=== PATIENT | female | born 1985 | race American Indian/Alaskan Native ===

== ENCOUNTER 2016-05-25 17:14 | Emergency (ER) | payer SELFPAY ==
[2016-05-25 18:30] LABS: Anion Gap 20 mmol/L; BUN/Creatinine Ratio 14.28; Blood Urea Nitrogen 10 mg/dL (7-17); Calcium 9.5 mg/dL (8.4-10.2); Carbon Dioxide 24 mmol/L (22-30); Chloride 98.2 mmol/L (98-107); Glucose 94 mg/dL (65-100); Potassium 3.9 mmol/L (3.6-5.0); Sodium 138 mmol/L (137-145)
[2016-05-25 19:00] LABS: Basophils % (Auto) 0.6 % (0.0-1.8); Eosinophils % (Auto) 1.4 % (0.0-4.3); Hematocrit 39.6 % (30.3-42.9); Hemoglobin 13.3 gm/dl (10.1-14.3); Mean Corpuscular HGB Conc 34 % (30-34); Mean Corpuscular Hemoglobin 31 pg (28-32); Mean Corpuscular Volume 92 fl (79-97); Platelet Count 332 K/mm3 (140-440); Red Blood Count 4.32 M/mm3 (3.65-5.03); Red Cell Distribution Width 13.2 % (13.2-15.2); White Blood Count 9.8 K/mm3 (4.5-11.0)
[2016-05-25 19:21] LABS: Bacteria,Urine 1+ /HPF (Negative); Bilirubin,Urine NEG (Negative); Blood,Urine NEG (Negative); Ketones,Urine 20 mg/dL (Negative); Leukocyte Esterase,Urine TR (Negative); Mucus,Urine 3+ /HPF; Nitrite,Urine NEG (Negative); Urobilinogen,Urine < 2.0 mg/dL (<2.0)
[2016-05-25] MEDS ORDERED: NACL 0.9% 1000 ML 1,000 ML IV ONE (23:18)
--- NOTE | 2016-05-25 23:51 | Emergency Department Report ---
HPI - General Chief Complaint: Nausea/Vomiting/Diarrhea Time Seen by Provider: 05/25/16 23:11 - HPI HPI: This is a 31-year-old [place] female presents to the emergency department with a complaint of generalized body aches, nausea, vomiting, all while . Patient says that she had a positive home test but has not yet seen her [facility]. She says she is unable to keep down any fluids or solids. She arrives with a note asking for Zofran and diclegis. He has a history of hypertension. No recent travel or sick contacts at home. She is not taken anything for symptoms prior to presentation. Patient is unsure of her last menstrual cycle. ED Past Medical Hx - Past Medical History Hx Hypertension: Yes - Surgical History Additional Surgical History: X 2 - Social History Smoking Status: Never Smoker Substance Use Type: None - Medications Home Medications: Home Medications Medication Instructions Recorded Confirmed Last Taken Type Azithromycin [Zithromax Z-SUMEET] 250 mg PO DAILY #6 tab 04/06/13 Unknown Rx Doxylamine/Pyridoxine HCl 1 each PO Q8H PRN #20 tablet. 05/26/16 Unknown Rx [Diclegis Dr 10-10 mg Tablet] Ondansetron [Zofran Odt] 4 mg PO Q8HR PRN #10 tab.rapdis 05/26/16 Unknown Rx ED Review of Systems ROS: Stated complaint: CHEST PAIN/VOMITING Other details as noted in HPI Comment: All other systems reviewed and negative Constitutional: denies: chills, fever Eyes: denies: eye pain, eye discharge, vision change ENT: denies: ear pain, throat pain Respiratory: denies: cough, shortness of breath, wheezing Cardiovascular: chest pain. denies: palpitations Gastrointestinal: abdominal pain, nausea, vomiting Genitourinary: denies: urgency, dysuria, discharge Musculoskeletal: myalgia. denies: joint swelling, arthralgia Skin: denies: rash, lesions Neurological: denies: headache, weakness, paresthesias Physical Exam - Physical Exam Vital Signs: Vital Signs 05/25/16 17:40 Temperature 98.2 F Pulse Rate 80 Respiratory 15 Rate Blood Pressure 148/103 O2 Sat by Pulse 98 Oximetry Physical Exam: GENERAL: The patient is well-developed well-nourished. HEENT: Normocephalic. Atraumatic. Extraocular motions are intact. Patient has moist mucous membranes. Pupils equal reactive to light bilaterally. NECK: Supple. Trachea is midline. CHEST/LUNGS: Clear to auscultation. There is no respiratory distress noted. HEART/CARDIOVASCULAR: Regular. There is no tachycardia. There is no gallop rub or murmur. ABDOMEN: Abdomen is soft. Mild generalized tenderness palpation of the abdomen. No guarding. Tenderness. Patient has normal bowel sounds. There is no abdominal distention. SKIN: There is no rash. Warm and dry. NEURO: The patient is awake, alert, and oriented. The patient is cooperative. The patient has no focal neurologic deficits. The patient has normal speech. MUSCULOSKELETAL: There is no tenderness or deformity. There is no limitation range of motion. There is no evidence of acute injury. ED Course Vital Signs 05/25/16 17:40 Temperature 98.2 F Pulse Rate 80 Respiratory 15 Rate Blood Pressure 148/103 O2 Sat by Pulse 98 Oximetry ED Medical Decision Making - Lab Data Result diagrams: 05/25/16 17:58 05/25/16 17:58 - EKG Data -: EKG Interpreted by Or EKG shows normal: sinus rhythm, axis, intervals, QRS complexes, ST-T waves Rate: normal - EKG Data When compared to previous EKG there are: previous EKG unavailable Interpretation: normal EKG - Radiology Data Radiology results: report reviewed Transvaginal/ ultrasound shows a live intrauterine about 5 weeks and 6 days - Medical Decision Making 31-year-old female presents emergency Department with complaint of nausea, vomiting and some abdominal discomfort while . Patient's labs are mostly unremarkable. Transvaginal/ ultrasound shows a live and uterine at about 6 weeks. Patient was given some Zofran, IV fluid resuscitation and upon reevaluation she is doing better. She was able to keep down some crackers and juice without any further nausea or vomiting. Patient already has an appointment with [facility]. She was given some Zofran and diclegis for home. She will return to the ER with any worsening of her symptoms or any acute distress. - Differential Diagnosis , spontaneous miscarriage, fibroids, UTI, food poisoning Critical Care Time: No Critical care attestation.: If time is entered above; I have spent that time in minutes in the direct care of this critically ill patient, excluding procedure time. ED Disposition Clinical Impression: Hyperemesis arising during , Body aches Qualifiers: Weeks of gestation: less than 8 weeks Qualified Code(s): Z3A.01 - Less than 8 weeks gestation of Disposition: DISCHARGED TO HOME OR SELFCARE Is pt being admited?: No Condition: Stable Instructions: (ED), Hyperemesis Gravidarum (ED) Additional Instructions: Please follow-up with [facility] in the next few days. Return to the emergency department with any worsening of your symptoms or any acute distress. Prescriptions: Doxylamine/Pyridoxine HCl [Briana Berrios 10-10 mg Tablet] 1 each PO Q8H PRN #20 tablet.dr PRN Reason: Nausea Ondansetron [Zofran Odt] 4 mg PO Q8HR PRN #10 tab.rapdis PRN Reason: Nausea Referrals: PRIMARY CARE, [Primary Care Provider] - 3-5 Days [facility] [place] [facility] [Provider Group] - 3-5 Days Time of Disposition: 03:20
[2016-05-26] MEDS ORDERED: ZOFRAN ONE (01:00)
--- NOTE | 2016-05-26 01:01 | Ultrasound Report ---
FINAL REPORT EXAM: US OB TRANSVAGINAL HISTORY: Abd pain, preg COMPARISON: None available. TECHNIQUE: Several real-time grayscale and color Doppler images were obtained. Transabdominal and transvaginal exam. FINDINGS: The uterus measures 9.2 x 4.7 x 5.1 centimeters. Single live IUP. Estimated gestational age 5 weeks 6 days. Estimated delivery date January 20, 2017. heart rate 101 beats per minute. Trace fluid in the pelvis. The cervix is closed. Ovaries are not visualized. No adnexal masses are demonstrated. IMPRESSION: Single live IUP. Estimated gestational age 5 weeks 6 days. Estimated delivery date January 20, 2017. No gross abnormality.
--- NOTE | 2016-05-26 01:01 | Ultrasound Report ---
FINAL REPORT EXAM: US OB \T\lt; = 14 WEEKS FETUS HISTORY: Abd pain, preg COMPARISON: None available. TECHNIQUE: Several real-time grayscale and color Doppler images were obtained. Transabdominal and transvaginal exam. FINDINGS: The uterus measures 9.2 x 4.7 x 5.1 centimeters. Single live IUP. Estimated gestational age 5 weeks 6 days. Estimated delivery date January 20, 2017. heart rate 101 beats per minute. Trace fluid in the pelvis. The cervix is closed. Ovaries are not visualized. No adnexal masses are demonstrated. IMPRESSION: Single live IUP. Estimated gestational age 5 weeks 6 days. Estimated delivery date January 20, 2017. No gross abnormality.
[2016-05-26] MEDS ORDERED: ZOFRAN IV ONE (01:06)
[2016-05-26 02:42] VITALS: BP 138/93
== END 2016-05-26 03:41 | disposition home or self-care (01) ==
LOC: ED 17:14
DX: O21.1 Hyperemesis gravidarum with metabolic disturbance (principal); O26.891 Other specified pregnancy related conditions, first trimester; M79.1 Myalgia; O16.1 Unspecified maternal hypertension, first trimester; Z3A.01 Less than 8 weeks gestation of pregnancy
CPT/HCPCS: 36415; 76801; 76817; 80048; 81001; 82550; 84703; 85025; 93005; 93010; 96361; 96374; 99284; J2405; J7030; 82962

== ENCOUNTER 2019-11-25 16:51 | Emergency (ER) | payer MEDICAID ==
[2019-11-25 21:12] LABS: Basophils # (Auto) 0.1 K/mm3 (0.0-0.1); Basophils % (Auto) 0.7 % (0.0-1.8); Eosinophils # (Auto) 0.1 K/mm3 (0.0-0.4); Eosinophils % (Auto) 1.2 % (0.0-4.3); Hematocrit 35.6 % (30.3-42.9); Hemoglobin 12.2 gm/dl (10.1-14.3); Lymphocytes # (Auto) 2.8 K/mm3 (1.2-5.4); Lymphocytes % (Auto) 34.2 % (13.4-35.0); Mean Corpuscular HGB Conc 34 % (30-34); Mean Corpuscular Volume 91 fl (79-97); Monocytes # (Auto) 0.5 K/mm3 (0.0-0.8); Monocytes % (Auto) 5.6 % (0.0-7.3); Platelet Count 360 K/mm3 (140-440); Red Blood Count 3.92 M/mm3 (3.65-5.03); Red Cell Distribution Width 13.8 % (13.2-15.2)
--- NOTE | 2019-11-25 21:13 | Emergency Department Report ---
ED Chest Pain HPI - General Chief Complaint: Chest Pain Stated Complaint: CHEST AND LEG PAIN Time Seen by Provider: 11/25/19 20:19 Source: patient Mode of arrival: Ambulatory Limitations: No Limitations - History of Present Illness Initial Comments: This is a 34-year-old female who presents to the emergency department from home with complaint of some nonradiating left-sided chest pain that started yesterday. She still has some discomfort but it is improved from its onset. She also complains of some right calf pain but denies any lower extremity sw elling. She also denies any shortness of breath, orthopnea, fever, nausea, vomiting or diaphoresis. Patient follows with a cardiology service through [facility] and says that she was recently diagnosed with heart failure. She also has a history of hypertension. She is on carvedilol, amlodipine and a baby aspirin. No recent travel or sick contacts at home. She has not taken anything for symptoms prior to presentation today. - Related Data Previous Rx's Medication Instructions Recorded Last Taken Type Azithromycin [Zithromax Z-SUMEET] 250 mg PO DAILY #6 tab 04/06/13 Unknown Rx Doxylamine Succinate/Vit B6 1 each PO Q8H PRN #20 tablet. 05/26/16 Unknown Rx [Briana Berrios 10-10 mg Tablet] Ondansetron [Zofran Odt] 4 mg PO Q8HR PRN #10 tab.phillip 05/26/16 Unknown Rx Allergies Allergy/AdvReac Type Severity Reaction Status Date / Time No Known Allergies Allergy Verified 05/25/16 17:39 Heart Score - HEART Score History: Slightly suspicious EKG: Normal Age: < 45 Risk factors: 1-2 risk factors Troponin: < normal limit HEART Score: 1 - Critical Actions Critical Actions: 0-3 pts:0.9-1.7%risk of adverse cardiac event.Candidate for discharge ED Review of Systems ROS: Stated complaint: CHEST AND LEG PAIN Other details as noted in HPI Comment: All other systems reviewed and negative Constitutional: denies: chills, fever Eyes: denies: eye pain, vision change ENT: denies: ear pain, throat pain Respiratory: denies: cough, orthopnea, shortness of breath Cardiovascular: chest pain. denies: palpitations, edema Gastrointestinal: denies: abdominal pain, vomiting Genitourinary: denies: dysuria, discharge Musculoskeletal: myalgia. denies: joint swelling Skin: denies: rash, lesions Neurological: denies: headache, weakness ED Past Medical Hx - Past Medical History Previous Medical History?: Yes Hx Hypertension: Yes Hx Congestive Heart Failure: Yes - Surgical History Past Surgical History?: Yes Additional Surgical History: X 2 - Social History Smoking Status: Never Smoker Substance Use Type: None - Medications Home Medications: Home Medications Medication Instructions Recorded Confirmed Last Taken Type Azithromycin [Zithromax Z-SUMEET] 250 mg PO DAILY #6 tab 04/06/13 Unknown Rx Doxylamine Succinate/Vit B6 1 each PO Q8H PRN #20 tablet. 05/26/16 Unknown Rx [Diclegis Dr 10-10 mg Tablet] Ondansetron [Zofran Odt] 4 mg PO Q8HR PRN #10 tab.phillip 05/26/16 Unknown Rx ED Physical Exam - General Limitations: No Limitations - Other Other exam information: GENERAL: The patient is well-developed well-nourished. HENT: Normocephalic. Atraumatic. Patient has moist mucous membranes. EYES: Extraocular motions are intact. NECK: Supple. Trachea is midline. CHEST/LUNGS: Clear to auscultation. There is no respiratory distress noted. HEART/CARDIOVASCULAR: Regular. There is no tachycardia. There is no murmur. ABDOMEN: Abdomen is soft, nontender. Patient has normal bowel sounds. SKIN: Skin is warm and dry. NEURO: The patient is awake, alert, and oriented. The patient is cooperative. Normal speech. MUSCULOSKELETAL: There is no tenderness or deformity. There is no evidence of acute injury. ED Course Vital Signs 11/25/19 11/25/19 11/25/19 17:06 20:35 21:00 Temperature 98.1 F 98.8 F Pulse Rate 105 H 93 H 76 Respiratory 20 18 16 Rate Blood Pressure 148/101 153/91 Blood Pressure 180/110 [Right] O2 Sat by Pulse 97 98 100 Oximetry 11/25/19 11/25/19 11/25/19 21:31 22:00 22:31 Temperature Pulse Rate 77 82 82 Respiratory 18 16 22 Rate Blood Pressure 148/101 151/94 151/94 Blood Pressure [Right] O2 Sat by Pulse 100 98 98 Oximetry 11/25/19 23:01 Temperature Pulse Rate Respiratory Rate Blood Pressure 150/83 Blood Pressure [Right] O2 Sat by Pulse 100 Oximetry ERNST score - Ernst Score Age > 65: (0) No Aspirin use within the Past 7 Days: (0) No 3 or more CAD Risk Factors: (0) No 2 or more Angina events in past 24 hrs: (1) Yes Known CAD with more than 50% Stenosis: (0) No Elevated Cardiac Markers: (0) No ST Deviation Greater than 0.5mm: (0) No ERNST Score: 1 ED Medical Decision Making - Lab Data Result diagrams: 11/25/19 20:55 11/25/19 20:55 - EKG Data -: EKG Interpreted by Me EKG shows normal: sinus rhythm, axis, intervals, QRS complexes, ST-T waves Rate: normal - EKG Data When compared to previous EKG there are: previous EKG unavailable Interpretation: normal EKG - Radiology Data Radiology results: report reviewed, image reviewed interpreted by me: Chest x-ray does not show any acute process. There are no pleural effusions, obvious pneumonia and there is no pneumothorax. No significant cardiomegaly. CTA CHEST WITH IV CONTRAST INDICATION: Chest pain TECHNIQUE: Axial CT images were obtained through the chest after injection of IV contrast. Coronal oblique 2-D reconstruction images were produced. 3 plane MIP reconstruction images were produced at an independent workstation. All CTs at this facility utilize dose reduction techniques including automated exposure control, iterative reconstruction and weight based dosing when appropriate to reduce patient radiation dose to as low as reasonable achievable. COMPARISON: Chest radiograph, 11/25/2019 FINDINGS: No filling defects are visualized within the central or segmental pulmonary arteries to suggest pulmonary embolism. The heart is normal in size. The thoracic aorta appears normal in course and caliber. Evaluation of the lung parenchyma demonstrates no evidence of focal airspace disease or pleural effusion. Limited imaging of the upper abdomen demonstrates no evidence of acute abnormality.. Bones and soft tissues: Evaluation of bony structures d emonstrates no evidence of acute bony abnormality. Evaluation of soft tissue structures demonstrates no evidence of acute soft tissue abnormality. IMPRESSION: 1. No evidence of pulmonary embolism or acute parenchymal process. - Medical Decision Making This patient presents to the emergency department with complaint of some left- sided chest pain. EKG is normal without any ST elevation [place] or dysrhythmia. Chest x-ray does not show any pneumonia, pleural effusions, pneumothorax, or any acute process. Patient's labs have been mostly unremarkable including CBC, metabolic panel and negative troponins x2. However the patient did have a slightly elevated and equivocal d-dimer level of about 260. Therefore the patient had a CT angiography study of the chest that resulted as negative for any pulmonary embolism or any other acute abnormalities or process. The patient was given a dose of Tylenol for her discomfort with some improvement. Her vital signs have been reassuring throughout her ED course including being afebrile. She has a low heart and ERNST score. She has good outpatient follow- up with both primary care and cardiology. She will return to the ER with any worsening of her symptoms or with any acute distress. Critical Care Time: No Critical care attestation.: If time is entered above; I have spent that time in minutes in the direct care of this critically ill patient, excluding procedure time. ED Disposition Clinical Impression: Chest pain Qualifiers: Chest pain type: unspecified Qualified Code(s): R07.9 - Chest pain, unspecified Hypertension Qualifiers: Hypertension type: essential hypertension Qualified Code(s): I10 - Essential (primary) hypertension Disposition: DC- TO HOME OR SELFCARE Is pt being admited?: No Condition: Stable Instructions: Chest Pain (ED), Hypertension (ED) Additional Instructions: Please follow-up with your primary care physician and commercial property administrator in the next few days. Return to the emergency department with any worsening of your symptoms or with any acute distress. Referrals: PRIMARY MD [facility] [Primary Care Provider] - 2-3 Days [facility] [Other] - 2-3 Days Time of Disposition: 00:32
[2019-11-25 21:24] LABS: INR 0.94 (0.87-1.13)
[2019-11-25] MEDS ORDERED: ACETAMINOPHEN 325 MG TAB PO ONE (21:32)
[2019-11-25 21:36] LABS: Alanine Aminotransferase 26 units/L (7-56); Albumin 4.2 g/dL (3.9-5); Blood Urea Nitrogen 8 mg/dL (7-17); Calcium 9.7 mg/dL (8.4-10.2); Hemolysis Index 1
[2019-11-25 21:38] LABS: BUN/Creatinine Ratio 11
[2019-11-25] MEDS ORDERED: POTASSIUM CHLORIDE ER 20 MEQ TAB PO ONE (21:53)
--- NOTE | 2019-11-25 21:53 | XRay Report ---
XR chest 1V ap INDICATION / CLINICAL INFORMATION: cp, sob. COMPARISON: None available. FINDINGS: SUPPORT DEVICES: None. HEART / MEDIASTINUM: No significant abnormality. LUNGS / PLEURA: Lungs are clear. Costophrenic sulci are sharp. No pneumothorax. ADDITIONAL FINDINGS: No significant additional findings. IMPRESSION: 1. No acute findings. Signer Name: Vladimir De Paz MD Signed: 11/25/2019 9:48 PM Workstation Name: [id number]
--- NOTE | 2019-11-26 00:23 | Cat Scan Report ---
CTA CHEST WITH IV CONTRAST INDICATION: Chest pain TECHNIQUE: Axial CT images were obtained through the chest after injection of IV contrast. Coronal oblique 2-D reconstruction images were produced. 3 plane MIP reconstruction images were produced at an [employer] workstation. All CTs at this facility utilize dose reduction techniques including automated expos ure control, iterative reconstruction and weight based dosing when appropriate to reduce patient radi ation dose to as low as reasonable achievable. COMPARISON: Chest radiograph, 11/25/2019 FINDINGS: No filling defects are visualized within the central or segmental pulmonary arteries to suggest pulmo nary embolism. The heart is normal in size. The thoracic aorta appears normal in course and caliber. Evaluation of the lung parenchyma demonstrates no evidence of focal airspace disease or pleural effus ion. Limited imaging of the upper abdomen demonstrates no evidence of acute abnormality.. Bones and soft tissues: Evaluation of bony structures demonstrates no evidence of acute bony abnormal ity. Evaluation of soft tissue structures demonstrates no evidence of acute soft tissue abnormality. IMPRESSION: 1. No evidence of pulmonary embolism or acute parenchymal process. Signer Name: Taylor Gonzalez MD Signed: 11/26/2019 12:19 AM Workstation Name: [id number]
[2019-11-26 07:14] VITALS: BP 127/78
== END 2019-11-26 00:40 | disposition home or self-care (01) ==
LOC: ED 16:51
DX: R07.89 Other chest pain (principal); M79.604 Pain in right leg; I11.0 Hypertensive heart disease with heart failure; I50.9 Heart failure, unspecified; Z98.890 Other specified postprocedural states
CPT/HCPCS: 36415; 71045; 71275; 80053; 83880; 84484; 84703; 85025; 85379; 85610; 93005; 99285; Q9967

== ENCOUNTER 2020-02-23 09:13 | Emergency (ER) | payer MEDICAID ==
--- NOTE | 2020-02-23 09:58 | XRay Report ---
CHEST 2 VIEWS INDICATION / CLINICAL INFORMATION: Chest Pain. COMPARISON: 11/25/2019 FINDINGS: SUPPORT DEVICES: None. HEART / MEDIASTINUM: No significant abnormality. LUNGS / PLEURA: No significant pulmonary or pleural abnormality. No pneumothorax. ADDITIONAL FINDINGS: No significant additional findings. IMPRESSION: 1. No acute findings. Signer Name: Osorio Carranza MD Signed: 02/23/2020 9:54 AM Workstation Name: [id number]
[2020-02-23 10:34] LABS: Basophils # (Auto) 0.1 K/mm3 (0.0-0.1); Eosinophils # (Auto) 0.1 K/mm3 (0.0-0.4); Eosinophils % (Auto) 1.5 % (0.0-4.3); Hemoglobin 11.7 gm/dl (10.1-14.3); Lymphocytes # (Auto) 1.5 K/mm3 (1.2-5.4); Lymphocytes % (Auto) 21.4 % (13.4-35.0); Mean Corpuscular HGB Conc 33 % (30-34); Mean Corpuscular Volume 93 fl (79-97); Monocytes # (Auto) 0.5 K/mm3 (0.0-0.8); Monocytes % (Auto) 7.8 % (0.0-7.3); Platelet Count 301 K/mm3 (140-440); Red Blood Count 3.77 M/mm3 (3.65-5.03); Red Cell Distribution Width 13.9 % (13.2-15.2)
[2020-02-23 10:44] LABS: Alanine Aminotransferase 18 units/L (7-56); Albumin 3.7 g/dL (3.9-5); Blood Urea Nitrogen 7 mg/dL (7-17); Hemolysis Index 7
[2020-02-23 10:46] LABS: BUN/Creatinine Ratio 12
[2020-02-23] MEDS ORDERED: POTASSIUM CHLORIDE ER 20 MEQ TAB PO ONE (10:55)
--- NOTE | 2020-02-23 11:42 | Emergency Department Report ---
ED Chest Pain HPI - General Chief Complaint: Pain General Stated Complaint: CHEST/ARM/LEG/WRIST PAIN Time Seen by Provider: 02/23/20 10:02 Source: patient Mode of arrival: Ambulatory Limitations: No Limitations - History of Present Illness Initial Comments: 34-year-old -[place] female patient presents with complaints of muscle cramps and spasms bilaterally to her legs arms and chest wall muscles x4 weeks. Patient states her symptoms began after she began taking antibiotics and omeprazole for H. pylori. She denies any leg pain/swelling, shortness of breath, chest pain, recent long travel/surgeries, cough, hemoptysis, history of DVT/PE/cancer, or hormone use. She also denies any nausea/vomiting/diarrhea. Patient has history of CHF and hypertension - Related Data Previous Rx's Medication Instructions Recorded Last Taken Type Azithromycin [Zithromax Z-SUMEET] 250 mg PO DAILY #6 tab 04/06/13 Unknown Rx Doxylamine Succinate/Vit B6 1 each PO Q8H PRN #20 tablet. 05/26/16 Unknown Rx [Briana Berrios 10-10 mg Tablet] Ondansetron [Zofran Odt] 4 mg PO Q8HR PRN #10 tab.phillip 05/26/16 Unknown Rx methOCARBAMOL [Robaxin TAB] 750 mg PO BID PRN #15 tab 02/23/20 Unknown Rx Allergies Allergy/AdvReac Type Severity Reaction Status Date / Time No Known Allergies Allergy Verified 05/25/16 17:39 Heart Score - HEART Score History: Slightly suspicious EKG: Normal Age: < 45 Risk factors: 1-2 risk factors Troponin: < normal limit HEART Score: 1 - Critical Actions Critical Actions: 0-3 pts:0.9-1.7%risk of adverse cardiac event.Candidate for discharge ED Review of Systems ROS: Stated complaint: CHEST/ARM/LEG/WRIST PAIN Other details as noted in HPI Constitutional: denies: chills, diaphoresis, fever, malaise, weakness ENT: denies: throat pain Respiratory: denies: cough, shortness of breath Cardiovascular: denies: chest pain, edema, syncope Endocrine: denies: excessive sweating Gastrointestinal: denies: abdominal pain, nausea, vomiting, diarrhea Genitourinary: denies: urgency, dysuria, frequency, hematuria Skin: denies: rash, lesions Neurological: denies: headache, numbness, paresthesias, abnormal gait Hematological/Lymphatic: denies: swollen glands ED Past Medical Hx - Past Medical History Previous Medical History?: Yes Hx Hypertension: Yes Hx Congestive Heart Failure: Yes - Surgical History Past Surgical History?: Yes Additional Surgical History: X 2 - Social History Smoking Status: Never Smoker Substance Use Type: None - Medications Home Medications: Home Medications Medication Instructions Recorded Confirmed Last Taken Type Azithromycin [Zithromax Z-SUMEET] 250 mg PO DAILY #6 tab 04/06/13 Unknown Rx Doxylamine Succinate/Vit B6 1 each PO Q8H PRN #20 tablet. 05/26/16 Unknown Rx [Diclegis Dr 10-10 mg Tablet] Ondansetron [Zofran Odt] 4 mg PO Q8HR PRN #10 tab.rapdis 05/26/16 Unknown Rx methOCARBAMOL [Robaxin TAB] 750 mg PO BID PRN #15 tab 02/23/20 Unknown Rx ED Physical Exam - General Limitations: No Limitations General appearance: alert, in no apparent distress, obese - Head Head exam: Present: atraumatic, normocephalic - Eye Eye exam: Present: normal appearance. Absent: scleral icterus - ENT ENT exam: Present: mucous membranes moist - Neck Neck exam: Present: normal inspection - Respiratory Respiratory exam: Present: normal lung sounds bilaterally. Absent: respiratory distress, chest wall tenderness - Cardiovascular Cardiovascular Exam: Present: regular rate, normal rhythm. Absent: systolic murmur, diastolic murmur, rubs, gallop - GI/Abdominal GI/Abdominal exam: Present: soft. Absent: distended, tenderness - Extremities Exam Extremities exam: Present: full ROM. Absent: pedal edema, joint swelling, calf tenderness (No swelling or tenderness to palpation noted to legs bilaterally) - Back Exam Back exam: Present: full ROM - Neurological Exam Neurological exam: Present: alert, oriented X3, normal gait - Psychiatric Psychiatric exam: Present: normal affect, normal mood - Skin Skin exam: Present: warm, dry, intact, normal color. Absent: rash, cyanosis, diaphoretic, erythema, petechiae, ecchymosis ED Course Vital Signs 02/23/20 02/23/20 09:17 11:49 Temperature 98.7 F Pulse Rate 79 70 Respiratory 20 14 Rate Blood Pressure 165/99 134/85 O2 Sat by Pulse 97 99 Oximetry ERNST score - Ernst Score Age > 65: (0) No Aspirin use within the Past 7 Days: (0) No 3 or more CAD Risk Factors: (0) No 2 or more Angina events in past 24 hrs: (1) Yes Known CAD with more than 50% Stenosis: (0) No Elevated Cardiac Markers: (0) No ST Deviation Greater than 0.5mm: (0) No ERNST Score: 1 ED Medical Decision Making - Lab Data Result diagrams: 02/23/20 10:06 02/23/20 10:06 Lab Results 02/23/20 02/23/20 02/23/20 Range/Units 10:06 10:06 10:06 WBC 6.9 (4.5-11.0) K/mm3 RBC 3.77 (3.65-5.03) M/mm3 Hgb 11.7 (10.1-14.3) gm/dl Hct 35.0 (30.3-42.9) % MCV 93 (79-97) fl MCH 31 (28-32) pg MCHC 33 (30-34) % RDW 13.9 (13.2-15.2) % Plt Count 301 (140-440) K/mm3 Lymph % (Auto) 21.4 (13.4-35.0) % [place] % (Auto) 7.8 H (0.0-7.3) % Eos % (Auto) 1.5 (0.0-4.3) % Baso % (Auto) [place] Lymph # (Auto) 1.5 (1.2-5.4) K/mm3 [place] # (Auto) 0.5 (0.0-0.8) K/mm3 Eos # (Auto) 0.1 (0.0-0.4) K/mm3 Baso # (Auto) 0.1 (0.0-0.1) K/mm3 Seg Neutrophils % 68.4 (40.0-70.0) % Seg Neutrophils # 4.7 (1.8-7.7) K/mm3 Sodium 141 (137-145) mmol/L Potassium 3.4 L (3.6-5.0) mmol/L Chloride 106.4 (98-107) mmol/L Carbon Dioxide 24 (22-30) mmol/L Anion Gap 14 mmol/L BUN 7 (7-17) mg/dL Creatinine 0.6 (0.6-1.2) mg/dL Estimated GFR > 60 ml/min BUN/Creatinine Ratio 12 % Glucose 98 (65-100) mg/dL Calcium 9.0 (8.4-10.2) mg/dL Magnesium (1.7-2.3) mg/dL Total Bilirubin 0.50 (0.1-1.2) mg/dL AST 12 (5-40) units/L ALT 18 (7-56) units/L Alkaline Phosphatase 73 (35-129) units/L Troponin T < 0.010 (0.00-0.029) ng/mL NT-Pro-B Natriuret Pep 118.8 (0-450) pg/mL Total Protein 7.5 (6.3-8.2) g/dL Albumin 3.7 L (3.9-5) g/dL Albumin/Globulin Ratio 1.0 % // Range/Units 10:06 WBC (4.5-11.0) K/mm3 RBC (3.65-5.03) M/mm3 Hgb (10.1-14.3) gm/dl Hct (30.3-42.9) % MCV (79-97) fl MCH (28-32) pg MCHC (30-34) % RDW (13.2-15.2) % Plt Count (140-440) K/mm3 Lymph % (Auto) (13.4-35.0) % [place] % (Auto) (0.0-7.3) % Eos % (Auto) (0.0-4.3) % Baso % (Auto) Lymph # (Auto) (1.2-5.4) K/mm3 [place] # (Auto) (0.0-0.8) K/mm3 Eos # (Auto) (0.0-0.4) K/mm3 Baso # (Auto) (0.0-0.1) K/mm3 Seg Neutrophils % (40.0-70.0) % Seg Neutrophils # (1.8-7.7) K/mm3 Sodium (137-145) mmol/L Potassium (3.6-5.0) mmol/L Chloride (98-107) mmol/L Carbon Dioxide (22-30) mmol/L Anion Gap mmol/L BUN (7-17) mg/dL Creatinine (0.6-1.2) mg/dL Estimated GFR ml/min BUN/Creatinine Ratio % Glucose (65-100) mg/dL Calcium (8.4-10.2) mg/dL Magnesium 2.20 (1.7-2.3) mg/dL Total Bilirubin (0.1-1.2) mg/dL AST (5-40) units/L ALT (7-56) units/L Alkaline Phosphatase (35-129) units/L Troponin T (0.00-0.029) ng/mL NT-Pro-B Natriuret Pep (0-450) pg/mL Total Protein (6.3-8.2) g/dL Albumin (3.9-5) g/dL Albumin/Globulin Ratio % - EKG Data EKG shows normal: sinus rhythm Rate: normal - EKG Data Interpretation: normal EKG - Medical Decision Making 34-year-old -[place] female patient presents with complaints of muscle cramps and spasms bilaterally to her legs arms and chest wall muscles x4 weeks. Patient states her symptoms began after she began taking antibiotics and omeprazole for H. pylori. She denies any leg pain/swelling, shortness of breath, chest pain, recent long travel/surgeries, cough, hemoptysis, history of DVT/PE/cancer, or hormone use. She also denies any nausea/vomiting/diarrhea. Patient has history of CHF and hypertension Physical exam is normal. Heart score = 1. PERC score = 0. Minimal hypokalemia noted, labs otherwise are without significant abnormalities. Recommend follow- up with primary care for further evaluation. She is well-appearing and stable for discharge home. Strict return precautions were discussed in detail with patient who verbalized understanding peer Critical care attestation.: If time is entered above; I have spent that time in minutes in the direct care of this critically ill patient, excluding procedure time. ED Disposition Clinical Impression: Muscle spasm Disposition: DC- TO HOME OR SELFCARE Is pt being admited?: No Condition: Stable Instructions: Muscle Cramps and Spasms Prescriptions: methOCARBAMOL [Robaxin TAB] 750 mg PO BID PRN #15 tab PRN Reason: muscle spasms Referrals: PRIMARY CARE, [Primary Care Provider] - 3-5 Days
[2020-02-23 11:51] VITALS: BP 134/85
== END 2020-02-23 11:51 | disposition home or self-care (01) ==
LOC: ED 09:13
DX: M62.838 Other muscle spasm (principal); I11.0 Hypertensive heart disease with heart failure; I50.9 Heart failure, unspecified; Z79.899 Other long term (current) drug therapy; Z98.890 Other specified postprocedural states
CPT/HCPCS: 36415; 71046; 80053; 83735; 83880; 84484; 85025; 93005

== ENCOUNTER 2020-02-25 09:39 | Emergency (ER) | payer MEDICAID ==
--- NOTE | 2020-02-25 10:27 | XRay Report ---
CHEST 1 VIEW 02/25/2020 9:19 AM INDICATION / CLINICAL INFORMATION: Chest Pain. COMPARISON: 02/23/2020 FINDINGS: SUPPORT DEVICES: None. HEART / MEDIASTINUM: No significant abnormality. LUNGS / PLEURA: No significant pulmonary or pleural abnormality. No pneumothorax. ADDITIONAL FINDINGS: No significant additional findings. IMPRESSION: No acute abnormality. Signer Name: Skinyn Choudhury MD Signed: 02/25/2020 10:23 AM Workstation Name: [id number]
[2020-02-25 10:46] LABS: Basophils # (Auto) 0.1 K/mm3 (0.0-0.1); Basophils % (Auto) 0.8 % (0.0-1.8); Eosinophils # (Auto) 0.1 K/mm3 (0.0-0.4); Eosinophils % (Auto) 1.8 % (0.0-4.3); Hematocrit 34.6 % (30.3-42.9); Hemoglobin 11.7 gm/dl (10.1-14.3); Lymphocytes # (Auto) 1.9 K/mm3 (1.2-5.4); Lymphocytes % (Auto) 27.7 % (13.4-35.0); Mean Corpuscular HGB Conc 34 % (30-34); Mean Corpuscular Volume 93 fl (79-97); Monocytes # (Auto) 0.6 K/mm3 (0.0-0.8); Monocytes % (Auto) 8.6 % (0.0-7.3); Platelet Count 320 K/mm3 (140-440); Red Blood Count 3.71 M/mm3 (3.65-5.03); Red Cell Distribution Width 13.9 % (13.2-15.2)
[2020-02-25 11:08] LABS: Blood Urea Nitrogen 6 mg/dL (7-17); Calcium 9.2 mg/dL (8.4-10.2); Hemolysis Index 10
--- NOTE | 2020-02-25 11:09 | Emergency Department Report ---
ED Chest Pain HPI - General Chief Complaint: Chest Pain Stated Complaint: CHEST PAIN/JUVENTINO LEG/JUVENTINO ARM Time Seen by Provider: 02/25/20 11:08 Source: patient Mode of arrival: Ambulatory Limitations: No Limitations - History of Present Illness Initial Comments: 34-year-old female with a reported history of hypertension and "borderline" congestive heart failure presents to the ER today complaining of substernal chest pain. Patient states that she has been having this pain intermittently since last week. She describes it as a burning/aching/muscle cramp which radiates into her back intermittently, and seems to be worse when she moves her arms. She states that she has had mild intermittent cough, but otherwise denies any shortness of breath, nausea, vomiting, fever, chills or diaphoresis. Patient also reports associated cramps in both her upper extremity and her right leg intermittently for the past week. She denies any lower extremity swelling. Patient was seen here February 202019 for similar symptoms. Work-up at that time was unremarkable and she was discharged home in stable condition. She states she was told that she had reflux disease, but she states she did follow- up with a GI specialist last week and had that endoscopy and was told that her endoscopy was normal, but she did have a biopsy which is pending. She states she was diagnosed with H. pylori about 2 months ago and was treated for that. She states that she did have a nuclear stress test about a year ago at [place] and that was normal. She states that she is concerned she may have a blood clot in her leg, though she has no risk factors and has not had a history of DVT or PE in the past. She denies tobacco abuse. She denies coronary artery disease/MS or any kind of lung disease. She states that her mom had a "mild" heart attack in her 40s. She states that her dad is currently , he had severe COPD and went into cardiac arrest. Complaint: chest pain -: week(s) (1) Pain Location: substernal - Related Data Previous Rx's Medication Instructions Recorded Last Taken Type Azithromycin [Zithromax Z-SUMEET] 250 mg PO DAILY #6 tab 04/06/13 Unknown Rx Doxylamine Succinate/Vit B6 1 each PO Q8H PRN #20 tablet. 05/26/16 Unknown Rx [Briana Berrios 10-10 mg Tablet] Ondansetron [Zofran Odt] 4 mg PO Q8HR PRN #10 tab.phillip 05/26/16 Unknown Rx Esomeprazole Magnesium [NexIUM] 40 mg PO QDAY #30 capsule. 02/25/20 Unknown Rx methOCARBAMOL [Robaxin TAB] 750 mg PO BID PRN #15 tab 02/25/20 Unknown Rx Allergies Allergy/AdvReac Type Severity Reaction Status Date / Time metronidazole [From Flagyl] Allergy Hives Verified 02/25/20 09:46 sulfamethoxazole Allergy Hives Verified 02/25/20 09:46 [From Bactrim] trimethoprim [From Bactrim] Allergy Hives Verified 02/25/20 09:46 Heart Score - HEART Score History: Slightly suspicious EKG: Normal Age: < 45 Risk factors: 1-2 risk factors Troponin: < normal limit HEART Score: 1 - Critical Actions Critical Actions: 0-3 pts:0.9-1.7%risk of adverse cardiac event.Candidate for discharge ED Review of Systems ROS: Stated complaint: CHEST PAIN/JUVENTINO LEG/JUVENTINO ARM Other details as noted in HPI Comment: All other systems reviewed and negative Constitutional: denies: chills, fever ENT: denies: ear pain, throat pain Respiratory: cough. denies: shortness of breath, SOB with exertion, SOB at rest, wheezing Cardiovascular: chest pain. denies: palpitations, dyspnea on exertion, orthopnea, edema, syncope, paroxysmal nocturnal dyspnea Gastrointestinal: denies: abdominal pain, nausea, diarrhea Skin: denies: rash, lesions Neurological: denies: headache, weakness, paresthesias Psychiatric: denies: anxiety, depression Hematological/Lymphatic: denies: easy bleeding, easy bruising ED Past Medical Hx - Past Medical History Previous Medical History?: Yes Hx Hypertension: Yes Hx Congestive Heart Failure: Yes Additional medical history: borderline heart failure - Surgical History Past Surgical History?: Yes Additional Surgical History: X 3 - Social History Smoking Status: Never Smoker Substance Use Type: None - Medications Home Medications: Home Medications Medication Instructions Recorded Confirmed Last Taken Type Azithromycin [Zithromax Z-SUMEET] 250 mg PO DAILY #6 tab 04/06/13 Unknown Rx Doxylamine Succinate/Vit B6 1 each PO Q8H PRN #20 tablet. 05/26/16 Unknown Rx [Briana Berrios 10-10 mg Tablet] Ondansetron [Zofran Odt] 4 mg PO Q8HR PRN #10 tab.phillip 05/26/16 Unknown Rx Esomeprazole Magnesium [NexIUM] 40 mg PO QDAY #30 capsule. 02/25/20 Unknown Rx methOCARBAMOL [Robaxin TAB] 750 mg PO BID PRN #15 tab 02/25/20 Unknown Rx ED Physical Exam - General Limitations: No Limitations General appearance: alert, in no apparent distress - Head Head exam: Present: atraumatic, normocephalic - Eye Eye exam: Present: normal appearance - ENT ENT exam: Present: mucous membranes moist - Respiratory Respiratory exam: Present: normal lung sounds bilaterally. Absent: respiratory distress - Cardiovascular Cardiovascular Exam: Present: regular rate, normal rhythm. Absent: systolic murmur, diastolic murmur, rubs, gallop - GI/Abdominal GI/Abdominal exam: Present: soft, normal bowel sounds. Absent: distended, tenderness - Extremities Exam Extremities exam: Present: normal inspection, full ROM. Absent: tenderness, pedal edema, calf tenderness - Neurological Exam Neurological exam: Present: alert, oriented X3, CN II-XII intact, normal gait - Psychiatric Psychiatric exam: Present: normal affect, normal mood - Skin Skin exam: Present: intact ED Course Vital Signs 02/25/20 09:46 Temperature 98.2 F Pulse Rate 79 Respiratory 16 Rate Blood Pressure 135/86 O2 Sat by Pulse 98 Oximetry ERNST score - Ernst Score Age > 65: (0) No Aspirin use within the Past 7 Days: (0) No 3 or more CAD Risk Factors: (0) No 2 or more Angina events in past 24 hrs: (1) Yes Known CAD with more than 50% Stenosis: (0) No Elevated Cardiac Markers: (0) No ST Deviation Greater than 0.5mm: (0) No ERNST Score: 1 ED Medical Decision Making - Lab Data Result diagrams: 02/25/20 10:23 02/25/20 10:23 Critical care attestation.: If time is entered above; I have spent that time in minutes in the direct care of this critically ill patient, excluding procedure time. ED Disposition Clinical Impression: Atypical chest pain, Muscle cramps Disposition: TO HOME OR SELFCARE Is pt being admited?: No Does the pt Need Aspirin: No Instructions: Chest Pain (ED), Muscle Cramps and Spasms, [id number], Nonspecific Chest Pain, Adult, [id number] Additional Instructions: I recommend that you follow-up with GI specialist for results of your biopsy. 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 Take the muscle relaxer as prescribed for pain. You can continue taking the Pepcid, or you can try the Nexium which was prescribed for you today. Return to the ER if your symptoms changes or worsens in any way. Prescriptions: Esomeprazole Magnesium [NexIUM] 40 mg PO QDAY #30 capsule. methOCARBAMOL [Robaxin TAB] 750 mg PO BID PRN #15 tab PRN Reason: muscle spasms Referrals: CASPER FABIAN MD [Primary Care Provider] - 3-5 Days Forms: Work/School Release Form(ED) Time of Disposition: 13:24
[2020-02-25 11:13] LABS: BUN/Creatinine Ratio 10
[2020-02-25] MEDS ORDERED: LIDOCAINE VISCOUS 2% 15 ML ORAL LIQD PO ONE (11:32)
[2020-02-25] MEDS ORDERED: ALUM-MAG HYDROXIDE-SIMETHICONE 200-200-20MG/5ML ORAL LIQD 30 ML PO ONE (11:32)
[2020-02-25] MEDS ORDERED: ACETAMINOPHEN 500 MG TAB PO ONE (11:33)
--- NOTE | 2020-02-25 12:30 | Vascular Lab Report ---
DUPLEX DOPPLER LOWER EXTREMITY VEINS, RIGHT INDICATION: Leg pain. TECHNIQUE: Duplex doppler imaging was performed through the veins of the right lower extremity using venous comp ression and other maneuvers. COMPARISON: No relevant prior imaging study available. FINDINGS: Right Common femoral vein: Negative. Right Superficial femoral vein: Negative. Right Popliteal vein: Negative. Right Calf veins: Negative. Additional findings: None.. IMPRESSION: Negative for DVT. Signer Name: Skinny Choudhury MD Signed: 02/25/2020 12:25 PM Workstation Name: [id number]
[2020-02-25 13:36] VITALS: BP 132/84
== END 2020-02-25 13:35 | disposition home or self-care (01) ==
LOC: ED 09:39
DX: R07.89 Other chest pain (principal); M79.10 Myalgia, unspecified site; I11.0 Hypertensive heart disease with heart failure; I50.9 Heart failure, unspecified; Z79.899 Other long term (current) drug therapy
CPT/HCPCS: 36415; 71045; 80048; 82550; 83880; 84484; 85025; 85379; 93005

== ENCOUNTER 2020-06-26 13:50 | Emergency (ER) | payer MEDICAID ==
--- NOTE | 2020-06-26 13:59 | Event Note ---
ED Screening Note Date of service: 06/26/20 Time: 13:58 ED Screening Note: Pt c/o chest pain x yesterday hx of HTN and borderline CHF per pt denies SOB or swelling This initial assessment/diagnostic orders/clinical plan/treatment(s) is/are subject to change based on patients health status, clinical progression and re- assessment by fellow clinical providers in the ED. Further treatment and workup at subsequent clinical providers discretion. Patient/guardian urged not to elope from the ED as their condition may be serious if not clinically assessed and managed. Initial orders include: labs CXR ekg
[2020-06-26 14:27] LABS: Basophils # (Auto) 0.1 K/mm3 (0.0-0.1); Basophils % (Auto) 1.2 % (0.0-1.8); Eosinophils # (Auto) 0.1 K/mm3 (0.0-0.4); Hematocrit 34.6 % (30.3-42.9); Hemoglobin 12.4 gm/dl (10.1-14.3); Lymphocytes % (Auto) 31.8 % (13.4-35.0); Mean Corpuscular HGB Conc 36 % (30-34); Mean Corpuscular Volume 93 fl (79-97); Monocytes # (Auto) 0.6 K/mm3 (0.0-0.8); Monocytes % (Auto) 8.8 % (0.0-7.3); Platelet Count 338 K/mm3 (140-440); Red Blood Count 3.71 M/mm3 (3.65-5.03); Red Cell Distribution Width 12.9 % (13.2-15.2)
[2020-06-26 14:54] LABS: Alanine Aminotransferase 9 units/L (7-56); Albumin 4.2 g/dL (3.9-5); Blood Urea Nitrogen 10 mg/dL (7-17); Calcium 8.9 mg/dL (8.4-10.2); Hemolysis Index 3
[2020-06-26 14:56] LABS: BUN/Creatinine Ratio 14
--- NOTE | 2020-06-26 15:14 | XRay Report ---
CHEST 2 VIEWS INDICATION / CLINICAL INFORMATION: chest pain. COMPARISON: 02/25/2020 FINDINGS: SUPPORT DEVICES: None. HEART / MEDIASTINUM: No significant abnormality. LUNGS / PLEURA: No significant pulmonary or pleural abnormality. No pneumothorax. ADDITIONAL FINDINGS: No significant additional findings. IMPRESSION: 1. No acute findings. Signer Name: Marlon Maki MD Signed: 06/26/2020 3:09 PM Workstation Name: [id number]
[2020-06-26] MEDS ORDERED: LIDOCAINE VISCOUS 2% 15 ML ORAL LIQD PO ONE (16:58)
[2020-06-26] MEDS ORDERED: ALUM-MAG HYDROXIDE-SIMETHICONE 200-200-20MG/5ML ORAL LIQD 30 ML PO ONE (16:58)
[2020-06-26 18:01] VITALS: BP 152/91
--- NOTE | 2020-06-26 18:21 | Emergency Department Report ---
ED Chest Pain HPI - General Chief Complaint: Chest Pain Stated Complaint: CHEST PAIN PUI?: No Time Seen by Provider: 06/26/20 18:01 Source: patient Mode of arrival: Ambulatory Limitations: No Limitations - History of Present Illness Initial Comments: Patient is a 35-year-old female that presents emergency room with complaints of chest pain. Patient states her chest pain going on for 1 day. Patient states that the chest pain is in her epigastric region and in her substernal region. Patient states it is a burning sensation. Patient states that she is also having burping and acid taste in her mouth. Patient states she has a history of acid reflux but after she made some dietary changes her acid reflux improvement she has not required any medications for a few years. Patient states she has seen a slip sheeter in the past and was diagnosed with H. pylori. Patient states 2 days ago she ate fried shrimp with spicy foods. Patient states ever since then she has had a burning sensation in her stomach. Patient denies recent travel. Patient denies recent international travel. Patient denies exposure to the novel coronavirus. Patient denies sick contacts. Patient denies fever and chills. Patient denies cough. Patient denies diarrhea. Patient denies coming in contact with anybody with symptoms of the novel coronavirus. MD Complaint: chest pain -: Sudden Pain Location: substernal, epigastric Severity: severe Severity scale (0 -10): 10 Improves With: antacids, rest Worsens With: movement re: denies: nausea, vomting, diaphoresis, dyspnea, sense of impending doom Other Symptoms: acid taste in mouth, burping. denies: fever, syncope, leg swelling, palpitations Treatments Prior to Arrival: none Aspirin use within the Past 7 Days: (1) Yes - Related Data On Oral Contraceptives: No Previous Rx's Medication Instructions Recorded Last Taken Type Azithromycin [Zithromax Z-SUMEET] 250 mg PO DAILY #6 tab 04/06/13 Unknown Rx Doxylamine Succinate/Vit B6 1 each PO Q8H PRN #20 tablet. 05/26/16 Unknown Rx [Briana Berrios 10-10 mg Tablet] Ondansetron [Zofran Odt] 4 mg PO Q8HR PRN #10 tab.phillip 05/26/16 Unknown Rx methOCARBAMOL [Robaxin TAB] 750 mg PO BID PRN #15 tab 02/25/20 Unknown Rx Esomeprazole Magnesium [NexIUM] 40 mg PO QDAY 30 Days #30 06/26/20 Unknown Rx capsule. Allergies Allergy/AdvReac Type Severity Reaction Status Date / Time metronidazole [From Flagyl] Allergy Hives Verified 02/25/20 09:46 sulfamethoxazole Allergy Hives Verified 02/25/20 09:46 [From Bactrim] trimethoprim [From Bactrim] Allergy Hives Verified 02/25/20 09:46 Heart Score - HEART Score History: Slightly suspicious EKG: Normal Age: < 45 Risk factors: No known risk factors Troponin: < normal limit HEART Score: 0 ED Review of Systems ROS: Stated complaint: CHEST PAIN Other details as noted in HPI Constitutional: denies: chills, fever Eyes: denies: eye pain, eye discharge, vision change ENT: denies: ear pain, throat pain Respiratory: denies: cough, shortness of breath, wheezing Cardiovascular: chest pain. denies: palpitations Endocrine: no symptoms reported Gastrointestinal: denies: abdominal pain, nausea, diarrhea Genitourinary: denies: urgency, dysuria, discharge Musculoskeletal: denies: back pain, joint swelling, arthralgia Skin: denies: rash, lesions Neurological: denies: headache, weakness, paresthesias Psychiatric: denies: anxiety, depression Hematological/Lymphatic: denies: easy bleeding, easy bruising ED Past Medical Hx - Past Medical History Previous Medical History?: Yes Hx Hypertension: Yes Hx Congestive Heart Failure: Yes Hx GERD: Yes Additional medical history: borderline heart failure - Surgical History Past Surgical History?: Yes Additional Surgical History: X 3 - Family History Family history: no significant - Social History Smoking Status: Never Smoker Substance Use Type: None - Medications Home Medications: Home Medications Medication Instructions Recorded Confirmed Last Taken Type Azithromycin [Zithromax Z-SUMEET] 250 mg PO DAILY #6 tab 04/06/13 Unknown Rx Doxylamine Succinate/Vit B6 1 each PO Q8H PRN #20 tablet. 05/26/16 Unknown Rx [Briana Berrios 10-10 mg Tablet] Ondansetron [Zofran Odt] 4 mg PO Q8HR PRN #10 tab.phillip 05/26/16 Unknown Rx methOCARBAMOL [Robaxin TAB] 750 mg PO BID PRN #15 tab 02/25/20 Unknown Rx Esomeprazole Magnesium [NexIUM] 40 mg PO QDAY 30 Days #30 06/26/20 Unknown Rx capsule. ED Physical Exam - General Limitations: No Limitations General appearance: alert, in no apparent distress - Head Head exam: Present: atraumatic, normocephalic - Eye Eye exam: Present: normal appearance - ENT ENT exam: Present: mucous membranes moist - Neck Neck exam: Present: normal inspection - Respiratory Respiratory exam: Present: normal lung sounds bilaterally, chest wall tendern ess. Absent: respiratory distress - Cardiovascular Cardiovascular Exam: Present: regular rate, normal rhythm. Absent: systolic murmur, diastolic murmur, rubs, gallop - GI/Abdominal GI/Abdominal exam: Present: soft, tenderness (Epigastric tenderness.), normal bowel sounds - Extremities Exam Extremities exam: Present: normal inspection - Back Exam Back exam: Present: normal inspection - Neurological Exam Neurological exam: Present: alert, oriented X3 - Psychiatric Psychiatric exam: Present: normal affect, normal mood - Skin Skin exam: Present: warm, dry, intact, normal color. Absent: rash ED Course Vital Signs 06/26/20 06/26/20 14:00 18:00 Temperature 98.7 F 98.8 F Pulse Rate 90 70 Respiratory 16 20 Rate Blood Pressure 152/91 Blood Pressure 150/91 [Right] O2 Sat by Pulse 98 100 Oximetry - Reevaluation(s) Reevaluation #1: Initial evaluation done. Patient states her symptoms have resolved after she was given a GI cocktail. Patient states she feels much better. Patient states the burning sensation in the epigastric pain and chest pain have completely resolved. Patient states she is ready to go. I discussed all results and clinical findings with patient. I discussed plan of care with patient. Patient agrees with plan of care. Patient is stable for discharge. Patient will be discharged home. Patient given discharge instructions. Patient voiced understanding of discharge instructions. Since the patient came to the emergency room complaining of chest pain, the patient will be referred to cardiology for further evaluation treatment and risk stratification. Patient's information faxed over to our local cardiology group. 06/26/20 18:20 ERNST score - Ernst Score Age > 65: (0) No Aspirin use within the Past 7 Days: (0) No 3 or more CAD Risk Factors: (0) No 2 or more Angina events in past 24 hrs: (0) No Known CAD with more than 50% Stenosis: (0) No Elevated Cardiac Markers: (0) No ST Deviation Greater than 0.5mm: (0) No ERNST Score: 0 ED Medical Decision Making - Lab Data Result diagrams: 06/26/20 14:10 06/26/20 14:10 - EKG Data -: EKG Interpreted by Me EKG shows normal: sinus rhythm, axis, intervals, QRS complexes, ST-T waves Rate: normal - EKG Data Interpretation: no acute changes, normal EKG - Radiology Data Radiology results: report reviewed, image reviewed interpreted by me: Chest x-ray: No pneumonia, no pneumothorax, no foreign body, no osseous findings, no acute findings CHEST 2 VIEWS INDICATION / CLINICAL INFORMATION: chest pain. COMPARISON: 02/25/2020 FINDINGS: SUPPORT DEVICES: None. HEART / MEDIASTINUM: No significant abnormality. LUNGS / PLEURA: No significant pulmonary or pleural abnormality. No pneumothorax. ADDITIONAL FINDINGS: No significant additional findings. IMPRESSION: 1. No acute findings. - Medical Decision Making Patient is a 35-year-old female that presents emergency room with complaints of chest pain and acid reflux. Patient chest pain going on for over 24 hours. Patient chest pain described as a burning sensation with an acid taste in her mouth with burping. Patient had labs done which were essentially unremarkable. Patient had 2 sets of cardiac enzymes which were negative. Patient had a chest x-ray which was negative for acute finding. Patient had an EKG which was negative for acute finding and a normal ST segment. Patient EKG does not show a STEMI or any acute changes. I personally reviewed the EKG and the chest x-ray. Patient was given a GI cocktail while in the ER and her symptoms completely resolved. Patient states she is feeling much better, After the GI cocktail. Patient is stable for discharge. Patient given discharge structures. Patient given a prescription for Nexium. Patient will be referred to a local cardiology group for further evaluation treatment and risk ratification of her chest pain since the patient presents emergency room with complaint of chest pain. Patient's chest pain will be considered low risk. Patient is stable to follow the chest pain and the gastritis as an outpatient. - Differential Diagnosis Chest pain, GERD, gastritis, Critical care attestation.: If time is entered above; I have spent that time in minutes in the direct care of this critically ill patient, excluding procedure time. ED Disposition Clinical Impression: Epigastric pain Gastritis Qualifiers: Gastritis type: unspecified gastritis Chronicity: acute Gastritis bleeding: without bleeding Qualified Code(s): K29.00 - Acute gastritis without bleeding Chest pain Qualifiers: Chest pain type: unspecified Qualified Code(s): R07.9 - Chest pain, unspecified Disposition: TO HOME OR SELFCARE Is pt being admited?: No Does the pt Need Aspirin: No Condition: Stable Instructions: Nonspecific Chest Pain, Adult, Abdominal Pain, Adult, [id number], Gastritis, Adult Additional Instructions: Patient to follow-up with primary care in 2 to 3 days. Patient to follow-up wit h gastroenterology and cardiology in 2 to 3 days. Patient to rest. Patient to increase water. Patient to avoid strenuous exercise or heavy lifting until cleared by cardiology. Patient to take Tylenol as needed for pain. Patient to eat a reflux diet. Patient to avoid NSAIDs and spicy and fatty foods. Patient to take meds as directed. Patient to return to the ER if condition worsens, changes or new symptoms arise. Prescriptions: Esomeprazole Magnesium [NexIUM] 40 mg PO QDAY 30 Days #30 capsule. Referrals: PRIMARY [place], [Primary Care Provider] - 2-3 Days HUYEN SAEZ MD [Staff Physician] - 2-3 Days TERRI CARDOSO MD [Staff Physician] - 2-3 Days Time of Disposition: 18:25
== END 2020-06-26 18:09 | disposition home or self-care (01) ==
LOC: ED 13:50
DX: K29.70 Gastritis, unspecified, without bleeding (principal); R07.89 Other chest pain; R10.13 Epigastric pain; I11.0 Hypertensive heart disease with heart failure; I50.9 Heart failure, unspecified; K21.9 Gastro-esophageal reflux disease without esophagitis; Z98.890 Other specified postprocedural states; Z79.2 Long term (current) use of antibiotics; Z79.899 Other long term (current) drug therapy; Z88.8 Allergy status to other drugs, medicaments and biological substances
CPT/HCPCS: 36415; 71046; 80053; 83880; 84484; 84703; 85025; 93005

== ENCOUNTER 2021-07-02 18:32 | Emergency (ER) | payer MEDICAID ==
[2021-07-02] MEDS ORDERED: ASPIRIN 325 MG TAB PO ONE (22:24)
--- NOTE | 2021-07-02 22:48 | XRay Report ---
CHEST 2 VIEWS INDICATION / CLINICAL INFORMATION: chest pain. COMPARISON: 06/26/2020 FINDINGS: SUPPORT DEVICES: None. HEART / MEDIASTINUM: No significant abnormality. LUNGS / PLEURA: No significant pulmonary or pleural abnormality. No pneumothorax. ADDITIONAL FINDINGS: No significant additional findings. IMPRESSION: 1. No acute findings. Signer Name: Marlon Maki MD Signed: 07/02/2021 10:44 PM Workstation Name: [id number]
[2021-07-02 23:02] LABS: Basophils # (Auto) 0.1 K/mm3 (0.0-0.1); Basophils % (Auto) 0.8 % (0.0-1.8); Eosinophils # (Auto) 0.1 K/mm3 (0.0-0.4); Eosinophils % (Auto) 1.1 % (0.0-4.3); Hemoglobin 12.7 gm/dl (10.1-14.3); Lymphocytes # (Auto) 2.7 K/mm3 (1.2-5.4); Lymphocytes % (Auto) 38.5 % (13.4-35.0); Mean Corpuscular HGB Conc 34 % (30-34); Mean Corpuscular Volume 94 fl (79-97); Monocytes # (Auto) 0.5 K/mm3 (0.0-0.8); Monocytes % (Auto) 6.9 % (0.0-7.3); Platelet Count 317 K/mm3 (140-440); Red Blood Count 4.06 M/mm3 (3.65-5.03); Red Cell Distribution Width 13.3 % (13.2-15.2)
[2021-07-02 23:27] LABS: Alanine Aminotransferase 11 units/L (7-56); Albumin 4.2 g/dL (3.9-5); Blood Urea Nitrogen 6 mg/dL (7-17); Calcium 9.1 mg/dL (8.4-10.2); Hemolysis Index 7
[2021-07-02 23:33] LABS: BUN/Creatinine Ratio 10
--- NOTE | 2021-07-03 01:21 | Emergency Department Report ---
ED General Adult HPI - General Chief complaint: Chest Pain Stated complaint: CHEST/ARM PAIN Source: patient, EMS Mode of arrival: Ambulatory Limitations: No Limitations - History of Present Illness Initial comments: Patient is a 36-year-old -[place] female with a history of GERD, hypertension and CHF who presents to the ED with complaint of acute onset left- sided chest pain, left lateral neck pain and posterior left shoulder pain for the last 2 days. Patient states that the pain has been constant and persistent and worse with movement or any physical activity. Patient denies dizziness, syncope, nausea and vomiting, shortness of breath, palpitations, traumatic in jury, heavy lifting, headache, fever and chills, cough, abdominal pain or numbness and tingling or weakness of upper and lower extremities bilaterally. MD Complaint: left chest pain; left lateral neck pain; posterior left shoulder pain; -: Sudden, days(s) (2) Location: neck (Left lateral neck pain), chest, back (Left-sided posterior mid thoracic pain), upper extremity (Posterior left shoulder pain) Radiation: extremity (Left shoulder and left arm; posterior left mid posterior thoracic area) Severity scale (0 -10): 5 Quality: aching, sharp Consistency: constant Improves with: none Worsens with: movement Associated Symptoms: denies other symptoms, chest pain (Left-sided chest pain). denies: confusion, cough, diaphoresis, fever/chills, headaches, loss of appetite, malaise, nausea/vomiting, shortness of breath, weakness Treatments Prior to Arrival: none - Related Data Previous Rx's Medication Instructions Recorded Last Taken Type Azithromycin [Zithromax Z-SUMEET] 250 mg PO DAILY #6 tab 04/06/13 Unknown Rx Doxylamine Succinate/Vit B6 1 each PO Q8H PRN #20 tablet. 05/26/16 Unknown Rx [Briana Berrios 10-10 mg Tablet] Ondansetron [Zofran Odt] 4 mg PO Q8HR PRN #10 tab.phillip 05/26/16 Unknown Rx methOCARBAMOL [Robaxin TAB] 750 mg PO BID PRN #15 tab 02/25/20 Unknown Rx Esomeprazole Magnesium [NexIUM] 40 mg PO QDAY 30 Days #30 06/26/20 Unknown Rx capsule. Gabapentin 300 mg PO BID #30 cap 04/02/22 Unknown Rx Naproxen 500 mg PO Q12H PRN #30 tab 07/03/21 Unknown Rx predniSONE [Deltasone] 40 mg PO QDAY #10 tab 07/03/21 Unknown Rx Allergies Allergy/AdvReac Type Severity Reaction Status Date / Time metronidazole [From Flagyl] Allergy Hives Verified 02/25/20 09:46 sulfamethoxazole Allergy Hives Verified 02/25/20 09:46 [From Bactrim] trimethoprim [From Bactrim] Allergy Hives Verified 02/25/20 09:46 ED Review of Systems ROS: Stated complaint: CHEST/ARM PAIN Other details as noted in HPI Constitutional: denies: chills, fever Eyes: denies: eye pain, eye discharge, vision change ENT: denies: ear pain, throat pain Respiratory: denies: cough, shortness of breath, wheezing Cardiovascular: chest pain (Left-sided). denies: palpitations Endocrine: no symptoms reported Gastrointestinal: denies: abdominal pain, nausea, vomiting, diarrhea Genitourinary: denies: urgency, dysuria, discharge Musculoskeletal: arthralgia (Procedure left shoulder pain), other (Left lateral neck pain). denies: back pain, joint swelling Skin: denies: rash, lesions Neurological: denies: headache, weakness, paresthesias Psychiatric: denies: anxiety, depression Hematological/Lymphatic: denies: easy bleeding, easy bruising ED Past Medical Hx - Past Medical History Previous Medical History?: Yes Hx Hypertension: Yes Hx Congestive Heart Failure: Yes Hx GERD: Yes Additional medical history: borderline heart failure - Surgical History Additional Surgical History: X 3 - Social History Smoking Status: Never Smoker Substance Use Type: None - Medications Home Medications: Home Medications Medication Instructions Recorded Confirmed Last Taken Type Azithromycin [Zithromax Z-SUMEET] 250 mg PO DAILY #6 tab 04/06/13 Unknown Rx Doxylamine Succinate/Vit B6 1 each PO Q8H PRN #20 tablet. 05/26/16 Unknown Rx [Briana Berrios 10-10 mg Tablet] Ondansetron [Zofran Odt] 4 mg PO Q8HR PRN #10 tab.phillip 05/26/16 Unknown Rx methOCARBAMOL [Robaxin TAB] 750 mg PO BID PRN #15 tab 02/25/20 Unknown Rx Esomeprazole Magnesium [NexIUM] 40 mg PO QDAY 30 Days #30 06/26/20 Unknown Rx capsule. Gabapentin 300 mg PO BID #30 cap 07/03/21 Unknown Rx Naproxen 500 mg PO Q12H PRN #30 tab 07/03/21 Unknown Rx predniSONE [Deltasone] 40 mg PO QDAY #10 tab 07/03/21 Unknown Rx ED Physical Exam - General Limitations: No Limitations General appearance: alert, in no apparent distress - Head Head exam: Present: atraumatic, normocephalic, normal inspection - Eye Eye exam: Present: normal appearance, PERRL, EOMI Pupils: Present: normal accommodation - ENT ENT exam: Present: normal exam, normal orophraynx, mucous membranes moist, TM's normal bilaterally, normal external ear exam - Neck Neck exam: Present: normal inspection, tenderness (Palpable left lateral sternocleidomastoid tenderness), full ROM. Absent: meningismus - Respiratory Respiratory exam: Present: normal lung sounds bilaterally. Absent: respiratory distress, wheezes, rales, rhonchi, chest wall tenderness, accessory muscle use, decreased breath sounds, prolonged expiratory - Cardiovascular Cardiovascular Exam: Present: regular rate, normal rhythm, normal heart sounds. Absent: systolic murmur, diastolic murmur, rubs, gallop - GI/Abdominal GI/Abdominal exam: Present: soft, normal bowel sounds. Absent: tenderness, guarding, rebound, hyperactive bowel sounds, hypoactive bowel sounds, organomegaly, mass, bruit - Extremities Exam Extremities exam: Present: normal inspection, full ROM, tenderness (Palpable pos terior left shoulder tenderness), normal capillary refill. Absent: pedal edema, joint swelling, calf tenderness - Back Exam Back exam: Present: normal inspection, full ROM. Absent: tenderness, CVA tenderness (R), CVA tenderness (L), muscle spasm, paraspinal tenderness, vertebral tenderness - Neurological Exam Neurological exam: Present: alert, oriented X3, CN II-XII intact, normal gait, reflexes normal - Psychiatric Psychiatric exam: Present: normal affect, normal mood - Skin Skin exam: Present: warm, dry, intact, normal color. Absent: rash ED Course Vital Signs 07/02/21 07/03/21 18:36 02:00 Temperature 97.9 F Pulse Rate 97 H 73 Respiratory 16 Rate Blood Pressure 148/106 144/90 [Left] O2 Sat by Pulse 99 99 Oximetry ED Medical Decision Making - Lab Data Result diagrams: 07/02/21 22:46 07/02/21 22:46 - EKG Data 07/04/21 06:08 EKG shows normal sinus rhythm with a ventricular rate of [address] or T wave abnormalities. - Radiology Data Radiology results: report reviewed, image reviewed [facility] [address] [place] [address] XRay Report Signed Patient: DIXIE CAMPBELL MR#: [id number] : 1985 Acct:[id number] Age/Sex: 36 / F ADM Date: 07/02/21 Loc: ED Attending Dr: Ordering Physician: EFRAIN ACUNA Date of Service: 07/02/21 Procedure(s): XR chest routine 2V Accession Number(s): [id number] cc: EFRAIN ACUNA Fluoro Time In Minutes: CHEST 2 VIEWS INDICATION / CLINICAL INFORMATION: chest pain. COMPARISON: 06/26/2020 FINDINGS: SUPPORT DEVICES: None. HEART / MEDIASTINUM: No significant abnormality. LUNGS / PLEURA: No significant pulmonary or pleural abnormality. No pneumothorax. ADDITIONAL FINDINGS: No significant additional findings. IMPRESSION: 1. No acute findings. Signer Name: Marlon Maki MD Signed: 07/02/2021 10:44 PM Workstation Name: [id number] Transcribed By: EMMA Dictated By: Marlon Maki MD Electronically Authenticated By: Marlon Maki MD Signed Date/Time: 07/02/212243 DD/ 42 TD/TT: - Medical Decision Making This is a 36-year-old -[place] female with a history of GERD, hypertension and CHF who presents to the ED with complaint of acute onset left- sided chest pain, left lateral neck pain and posterior left shoulder pain for the last 2 days. Patient states that the pain has been constant and persistent and worse with movement or any physical activity. In the ED, patient is alert and oriented x3 and is not in any distress. EKG performed in route by EMS shows normal sinus rhythm with a ventricular rate of [address] or T wave abnormalities. Chest x-ray showed no acute cardiopulmonary abnormalities or pneumonitis. Lab test results were reviewed and are all nonactionable except for mild hypokalemia of 3.1 mmol/L. Patient's heart score is 2, and patient needs PERC negative per Wells criteria. Based on the history and physical exam findings, the patient symptoms are likely due to cervical radiculopathy affecting the left arm. Patient was therefore discharged home on medications and advised to follow-up with her primary care physician in 7 to 10 days for reevaluation. Patient was advised to return to the ED immediately if symptoms get worse. - Differential Diagnosis ACS; pneumonia; muscle strain; costochondritis; cervical radiculopathy; Critical care attestation.: If time is entered above; I have spent that time in minutes in the direct care of this critically ill patient, excluding procedure time. ED Disposition Clinical Impression: Nonspecific chest pain, Cervical radiculopathy, Bursitis of left shoulder Muscle strain of left shoulder Qualifiers: Encounter type: initial encounter Qualified Code(s): S46.912A - Strain of unspecified muscle, fascia and tendon at shoulder and upper arm level, left arm, initial encounter Disposition: HOME / SELF CARE / HOMELESS Is pt being admited?: No Does the pt Need Aspirin: No Condition: Stable Instructions: Bursitis, [id number], Chest Wall Pain, [id number], Muscle Strain, [id number], Nonspecific Chest Pain, Adult, [id number], Cervical Radiculopathy, [id number] Additional Instructions: All lab test results were reviewed and are all nonactionable. Chest x-ray showed no acute cardiopulmonary abnormalities or pneumonitis. Your symptoms are likely musculoskeletal as a result of cervical radiculopathy or bursitis of left shoulder or tendinitis of left shoulder. Therefore take medications with food, drink plenty of fluids and follow-up with your primary care physician in 5 to 7 days for reevaluation. Return to the ED immediately if symptoms get worse. Prescriptions: predniSONE [Deltasone] 40 mg PO QDAY #10 tab Gabapentin 300 mg PO BID #30 cap Naproxen 500 mg PO Q12H PRN #30 tab PRN Reason: Pain , Severe (7-10) Referrals: KATERINA POSADAS MD [Staff Physician] - 7-10 days Time of Disposition: 01:19 Print Language: MONTSERRATIAN
[2021-07-03 02:02] VITALS: BP 144/90
== END 2021-07-03 02:03 | disposition home or self-care (01) ==
LOC: ED 18:32
DX: S46.912A Strain of unspecified muscle, fascia and tendon at shoulder and upper arm level, left arm, initial encounter (principal); M75.52 Bursitis of left shoulder; M54.12 Radiculopathy, cervical region; R07.89 Other chest pain; I11.0 Hypertensive heart disease with heart failure; I50.9 Heart failure, unspecified; K21.9 Gastro-esophageal reflux disease without esophagitis; Z98.890 Other specified postprocedural states; Z88.2 Allergy status to sulfonamides; Z88.8 Allergy status to other drugs, medicaments and biological substances; Z79.899 Other long term (current) drug therapy; X58.XXXA Exposure to other specified factors, initial encounter; Y93.89 Activity, other specified; Y92.89 Other specified places as the place of occurrence of the external cause; Y99.8 Other external cause status
CPT/HCPCS: 36415; 71046; 80053; 83880; 84484; 85025; 99284